=== PATIENT | female | born 1995 | race Two or more races ===

== ENCOUNTER → 2017-02-04 | Outpatient (CLI) | payer BC, OTHER ==
--- NOTE | 2017-02-04 17:06 | RAD ---
Indication large for dates. A limited obstetrical ultrasound examination was performed. No prior imaging is available. There is a single viable intrauterine fetus. heart rate of 136 was documented. The biparietal diameter of 9.4 cm, head circumference of 33.3 cm, abdominal circumference of 34.5 cm and femoral length of 7.3 cm are compatible with a gestational age of 38 weeks. By sonographic analysis the expected date of confinement is 02/18/2017. Estimated weight is approximately 4000 g. A survey was not performed. No gross anomalies were seen. The placenta is predominantly posterior and fundal. The calculated amniotic fluid index is 12. The current presentation is vertex. IMPRESSION: Single viable intrauterine fetus of approximately 38 weeks gestation. Vertex presentation.
== END | disposition home or self-care (01) ==
LOC: US 16:05
PROVIDERS: ATTEND Nurse Practitioner Women's Health
DX: O36.63X0 Maternal care for excessive fetal growth, third trimester, not applicable or unspecified (principal); Z3A.38 38 weeks gestation of pregnancy
CPT/HCPCS: 76805

== ENCOUNTER 2017-02-10 03:16 | Inpatient (IN) | payer BC ==
[~2017-02-10] VITALS: Ht 170.2 cm; Wt 128.8 kg
[2017-02-10] MEDS ORDERED: IV RINGERS,LACTATED 1000ML 1,000 ML IV SCH ×2 (04:30→14:11)
[2017-02-10] MEDS ORDERED: LIDOCAINE 1% PF 30 ML VIAL. INJ PRN (04:30)
[2017-02-10] MEDS ORDERED: 0.9 % SODIUM CHLORIDE 10 ML DISP.SYRIN. IV PRN ×2 (04:30→17:45)
[2017-02-10] MEDS ORDERED: ONDANSETRON PF 4 MG/2 ML VIAL. IV PRN ×2 (04:30→14:15)
[2017-02-10] MEDS ORDERED: ACETAMINOPHEN 325 MG TABLET. PO PRN ×2 (04:30→17:45)
[2017-02-10] MEDS ORDERED: BUTORPHANOL 2 MG/ML VIAL. IV PRN (04:30)
[2017-02-10] MEDS ORDERED: TERBUTALINE 1 MG/ML VIAL. SQ PRN (04:30)
[2017-02-10] MEDS ORDERED: MAG HYDROX/ALUMINUM HYD/SIMETH 30 ML ORAL.SUSP PO PRN ×2 (04:30→17:45)
[2017-02-10] MEDS ORDERED: OXYTOCIN 30 UNIT/500 ML PREMIX 500 ML IV PRN ×2 (04:30→17:45)
[2017-02-10 05:37] LABS: HEMATOCRIT 34.8 % (36.0-47.0); HEMOGLOBIN 11.4 g/dL (12.0-15.5); RED BLOOD COUNT 3.92 x10^6/uL (3.50-5.40); RED CELL DISTRIBUTION WIDTH 14.3 % (11.5-14.5); WHITE BLOOD COUNT 13.2 x10^3/uL (4.0-11.0)
[2017-02-10] MEDS: IV RINGERS,LACTATED 1000ML 1,000 ML IV SCH ×2 (05:46→13:40)
[2017-02-10 06:00] VITALS: BP 143/85
[2017-02-10] MEDS ORDERED: OXYTOCIN 30 UNIT/500 ML PREMIX 500 ML IV ONE (07:00)
[2017-02-10] MEDS: fentaNYL PF VIAL 100 MCG/2 ML VIAL IV PRN ×2 (11:39→12:59)
[2017-02-10] MEDS ORDERED: ROPIVacaine 0.2% IN 0.9%NACL PF 40 MG/20 ML DISP.SYRIN. ONE (13:34)
[2017-02-10] MEDS ORDERED: L&D EPIDURAL CASSETTE 100 ML EP ONE (13:34)
[2017-02-10] MEDS ORDERED: fentaNYL PF VIAL 100 MCG/2 ML VIAL EPI PRN (14:15)
[2017-02-10] MEDS ORDERED: L&D EPIDURAL CASSETTE 100 ML EP PRN (14:15)
[2017-02-10] MEDS ORDERED: ROPIVacaine 0.2% IN 0.9%NACL PF 40 MG/20 ML DISP.SYRIN. EPI PRN (14:15)
[2017-02-10] MEDS ORDERED: ePHEDrine PF IN SALINE 50 MG/5 ML DISP.SYRIN IV PRN (14:15)
[2017-02-10] MEDS ORDERED: NALOXONE 0.4 MG/ML VIAL. IV PRN (14:15)
[2017-02-10] MEDS ORDERED: PHENYLEPH/MINERAL OIL/PETROLAT RECTAL OINTMENT 28GM TUBE. RC PRN (17:45)
[2017-02-10] MEDS ORDERED: diphenhydrAMINE HCL 25 MG CAPSULE PO PRN (17:45)
[2017-02-10] MEDS ORDERED: HYDROcodone/APAP 5/325MG 1 TAB TABLET PO PRN ×2 (17:45)
[2017-02-10] MEDS ORDERED: BENZOCAINE 20% TOPICAL AEROSOL SPRAY 57GM CAN. TP PRN (17:45)
[2017-02-10] MEDS ORDERED: SIMETHICONE 80 MG TAB.CHEW PO PRN (17:45)
[2017-02-10] MEDS ORDERED: MAGNESIUM HYDROXIDE 2,400 MG/30 ML ORAL.SUSP. PO PRN (17:45)
[2017-02-10] MEDS ORDERED: HYDROCORTISONE 1% TOPICAL OINTMENT 30GM TUBE. TP PRN (17:45)
[2017-02-10] MEDS ORDERED: ZOLPIDEM 5 MG TABLET. PO PRN (17:45)
--- NOTE | 2017-02-10 19:02 | OP ---
DATE OF SURGERY: CHIEF COMPLAINT: Ruptured membranes. CLINICAL COURSE: This patient is a 21-year-old G3, P1, LC1, AB1 female admitted at term with EDC of 02/16/2017 with risk of obesity and abnormal genetic screening. She came in with acute rupture of membranes with clear fluid, did not progress spontaneously into labor and Pitocin augmentation was done. She did achieve 3 cm dilatation and very good contractions and epidural was administered. The patient quickly proceeded from 4 to complete, delivering a viable male infant with Apgars of 8, 9 and 9 at 1726 on 02/10/2017. Infant weighed 3015 grams. was delivered in OP position. Mouth was suctioned upon delivery of the head and nasopharynx was suctioned at that time. Shoulders were delivered and had spontaneous cry and no gross abnormalities. Repeat suctioning was done and cord was clamped and transected. Cord pHs were sent and cord blood was obtained. Placenta then was delivered intact with 3-vessel cord noted. Uterus was firm with Pitocin and palpation. Perineum was intact. There was good hemostasis after delivery with approximately 250 mL blood loss. Mother and baby went to recovery in stable condition. ALLIE DIAZ MD DR: CORNELIA/rosalinda JOB#: [id number] / [id number]
[2017-02-10 20:10] VITALS: BP 143/63
[2017-02-10 21:15] VITALS: BP 113/74
[2017-02-10] MEDS ORDERED: PNV1TABL25 PO (21:30)
[2017-02-11 01:15] VITALS: BP 114/66
[2017-02-11 02:40] LABS: BASO % 0 % (0-3); EOS % 1 % (0-3); HEMATOCRIT 32.6 % (36.0-47.0); HEMOGLOBIN 10.6 g/dL (12.0-15.5); LYMPH # 2.5 x10^3/uL (1.0-4.8); LYMPH % 17 % (24-48); MEAN CORPUSCULAR HEMOGLOBIN 29 pg (25-35); MEAN CORPUSCULAR HGB CONC 33 g/dL (31-37); MEAN CORPUSCULAR VOLUME 89 fL (79-100); MONO % 7 % (0-9); NEUT % 75 % (31-73); PLATELET COUNT 221 x10^3/uL (140-400); RED BLOOD COUNT 3.68 x10^6/uL (3.50-5.40); RED CELL DISTRIBUTION WIDTH 14.7 % (11.5-14.5); WHITE BLOOD COUNT 14.4 x10^3/uL (4.0-11.0)
[2017-02-11] MEDS: IBUPROFEN 600 MG TABLET. PO PRN ×2 (05:29→16:16)
[2017-02-11 05:35] VITALS: BP 125/88
[2017-02-11] MEDS: FERROUS SULFATE 325 MG TABLET. PO SCH ×2 (08:00→17:00)
[2017-02-11] MEDS ORDERED: DIPHTH,PERTUSS(ACELL),TET TOX 0.5 ML DISP.SYRIN. VAX IM ONE (09:00)
[2017-02-11 11:21] LABS: RPR REFLEX Non Reactive (Non Reactive)
[2017-02-11 11:50] VITALS: BP 112/76
[2017-02-11 14:21] LABS: HEP B SURFACE ABDY Reactive (.)
[2017-02-11 17:03] VITALS: BP 120/74
--- NOTE | 2017-02-11 17:09 | PDOC1 ---
OB - History Hx of Present Care: Good Care Ultrasounds: Normal mid trimester US Obstetrical Complications: Other (abnormal genetic screen) Medical Complications: None Past Family/Social History * Past Medical, Surgical, Family and Obstetric Histories reviewed from chart. Blood Type: O+ Rubella: Immune RPR/VDRL: Negative GBS Status: Negative HBsAG: Negative OB - Chief Complaint & HPI Date of Admission: Date of Admission: February 10, 2017 at 03:16 Chief Complaint/History : 3 Para: 1 EDC: Feb 17, 2017 Reason for admission: rupture of membranes Admission Nurse Assessment Rev: Yes Problems: OB - Admission Exam Physical Exam Vitals: VS - Last 72 Hours, by Label Date Time Temp Pulse Resp B/P (MAP) Pulse Ox O2 Delivery O2 Flow Rate FiO2 02/11/17 17:03 98.1 82 18 120/74 (89) 98.1 02/11/17 11:50 68 18 112/76 (88) 02/11/17 05:35 98.2 79 18 125/88 (100) 96 Room Air 98.2 02/11/17 01:15 98.1 81 18 114/66 (82) 96 Room Air 98.1 02/10/17 21:15 97.9 97 18 113/74 (87) 97 Room Air 97.9 02/10/17 20:10 96.3 111 18 143/63 (89) Room Air 96.3 02/10/17 11:39 Room Air 02/10/17 06:00 97.3 94 18 143/85 (104) 97.3 HEENT: Normal, Nasal Mucosa Normal, Oropharynx Normal, Moist Membranes, Fontanelles Normal Lungs: Clear, Equal Abdomen: Gravid Extremities: Normal Pulses, No tenderness or swelling Reflexes: Normal Cervical Dilatation: 2cm Station: -3 Membranes: Ruptured Amniotic Fluid: Clear Heart Rate: Normal Decelerations: No decelerations Short Term Variability: Present Fpc Variability: Moderate Contractions on Admission: None Intensity: Mild ALLIE DIAZ MD February 11, 2017 17:09
--- NOTE | 2017-02-11 17:11 | PDOC ---
PROGRESS NOTES Subjective Subjective Patient doing very well postop day 1. Patient tolerating diet and ambulating. Patient having decreased bleeding and pain. Objective Objective Vital Signs Date Time Temp Pulse Resp B/P (MAP) Pulse Ox O2 Delivery O2 Flow Rate FiO2 02/11/17 17:03 98.1 82 18 120/74 (89) 98.1 02/11/17 05:35 96 Room Air Intake and Output 02/11/17 07:00 Intake Total 1855.4 ml Balance 1855.4 ml Intake Oral 400 ml IV Total 1455.4 ml # Voids 1 Physical Exam Abdomen: Normal bowel sounds, Other (uterus firm and below umbilicus) Heart: Regular rate Extremities: No edema, Other (negative Homans sign) General: Alert Lungs: Clear to auscultation Assessment Assessment day 1 Plan Plan of Care Routine care Comment Review of Relevant I have reviewed the following items andres (where applicable) has been applied. Labs Laboratory Tests Test 02/10/17 05:15 02/10/17 07:35 02/11/17 02:25 White Blood Count 13.2 x10^3/uL (4.0-11.0) 14.4 x10^3/uL (4.0-11.0) Red Blood Count 3.92 x10^6/uL (3.50-5.40) 3.68 x10^6/uL (3.50-5.40) Hemoglobin 11.4 g/dL (12.0-15.5) 10.6 g/dL (12.0-15.5) Hematocrit 34.8 % (36.0-47.0) 32.6 % (36.0-47.0) Mean Corpuscular Volume 89 fL (79-100) 89 fL (79-100) Mean Corpuscular Hemoglobin 29 pg (25-35) 29 pg (25-35) Mean Corpuscular Hemoglobin Concent 33 g/dL (31-37) 33 g/dL (31-37) Red Cell Distribution Width 14.3 % (11.5-14.5) 14.7 % (11.5-14.5) Platelet Count 248 x10^3/uL (140-400) 221 x10^3/uL (140-400) RPR Titer Additional Testing Non reactive (Non Reactive) Hepatitis B Surface Antibody Reactive (.) Rubella IgG Antibody 2.82 index (Immune >0.99) Neutrophils (%) (Auto) 75 % (31-73) Lymphocytes (%) (Auto) 17 % (24-48) Monocytes (%) (Auto) 7 % (0-9) Eosinophils (%) (Auto) 1 % (0-3) Basophils (%) (Auto) 0 % (0-3) Neutrophils # (Auto) 10.8 x10^3uL (1.8-7.7) Lymphocytes # (Auto) 2.5 x10^3/uL (1.0-4.8) Monocytes # (Auto) 1.1 x10^3/uL (0.0-1.1) Eosinophils # (Auto) 0.1 x10^3/uL (0.0-0.7) Basophils # (Auto) 0.0 x10^3/uL (0.0-0.2) Laboratory Tests Test 02/11/17 02:25 White Blood Count 14.4 x10^3/uL (4.0-11.0) Red Blood Count 3.68 x10^6/uL (3.50-5.40) Hemoglobin 10.6 g/dL (12.0-15.5) Hematocrit 32.6 % (36.0-47.0) Mean Corpuscular Volume 89 fL (79-100) Mean Corpuscular Hemoglobin 29 pg (25-35) Mean Corpuscular Hemoglobin Concent 33 g/dL (31-37) Red Cell Distribution Width 14.7 % (11.5-14.5) Platelet Count 221 x10^3/uL (140-400) Neutrophils (%) (Auto) 75 % (31-73) Lymphocytes (%) (Auto) 17 % (24-48) Monocytes (%) (Auto) 7 % (0-9) Eosinophils (%) (Auto) 1 % (0-3) Basophils (%) (Auto) 0 % (0-3) Neutrophils # (Auto) 10.8 x10^3uL (1.8-7.7) Lymphocytes # (Auto) 2.5 x10^3/uL (1.0-4.8) Monocytes # (Auto) 1.1 x10^3/uL (0.0-1.1) Eosinophils # (Auto) 0.1 x10^3/uL (0.0-0.7) Basophils # (Auto) 0.0 x10^3/uL (0.0-0.2) Medications Current Medications Ringer's Solution 1,000 ml @ 125 mls/hr Q8H IV Last administered on 02/10/17 13:40; Start 02/10/17 at 03:32 Sodium Chloride (Normal Saline Flush) 3 ml QSHIFT PRN IV AFTER MEDS AND BLOOD DRAWS; Start 02/10/17 at 04:30 Ringer's Solution 1,000 ml @ 125 mls/hr Q8H IV ; Start 02/10/17 at 04:30 Butorphanol Tartrate (Stadol) 2 mg PRN Q1HR PRN IV Severe labor pain; Start at 04:30 Fentanyl Citrate (Fentanyl 2ml Vial) 100 mcg PRN Q20MIN PRN IV Labor pain Last administered on 02/10/17 12:59; Start 02/10/17 at 04:30 Acetaminophen (Tylenol) 650 mg PRN Q6HRS PRN PO MILD PAIN / TEMP; Start at 04:30 Ondansetron HCl (Zofran) 4 mg PRN Q4HRS PRN IV NAUSEA/VOMITING; Start 02/10/17 at 04:30 Al Hydroxide/Mg Hydroxide (Mylanta Plus Xs) 30 ml PRN Q4HRS PRN PO HEARTBURN / GAS; Start 02/10/17 at 04:30 Terbutaline Sulfate (Brethine) 0.25 mg 1X PRN PRN SQ SEE COMMENTS; Start at 04:30; Stop 02/11/17 at 04:29; Status DC Lidocaine HCl 30 ml 1X PRN PRN INJ SEE COMMENTS; Start 02/10/17 at 04:30; Stop 02/12/17 at 04:29 Oxytocin/Sodium Chloride 500 ml @ 0 mls/hr CONT PRN PRN IV Post delivery bleeding; Start 02/10/17 at 04:30 Ibuprofen (Motrin) 600 mg PRN Q6HRS PRN PO MODERATE PAIN Last administered on 16:16; Start 02/10/17 at 04:30 Oxytocin/Sodium Chloride 500 ml @ 0 mls/hr 1X ONCE IV Last administered on 07:30; Start 02/10/17 at 07:00; Stop 02/10/17 at 07:01; Status DC Ropivacaine/ Fentanyl/NS 100 ml @ As Directed STK-MED ONCE EP ; Start 02/10/17 at 13:34; Stop 02/10/17 at 13:35; Status DC Ropivacaine 40 mg STK-MED ONCE .ROUTE ; Start 02/10/17 at 13:34; Stop 02/10/17 at 13:35; Status DC Ringer's Solution 1,000 ml @ 1,000 mls/hr Q1H IV Last administered on 15:36; Start 02/10/17 at 14:11; Stop 02/10/17 at 15:10; Status DC Ephedrine Sulfate 10 mg PRN Q2MIN PRN IV IF SBP<90; Start 02/10/17 at 14:15 Naloxone HCl (Narcan) 0.4 mg PRN Q1MIN PRN IV SEE COMMENTS; Start 02/10/17 at 14:15 Fentanyl Citrate (Fentanyl 2ml Vial) 100 mcg PRN 1X PRN EPI FOR ANESTHESIA; Start 02/10/17 at 14:15; Stop 02/11/17 at 14:14; Status DC Ropivacaine/ Fentanyl/NS 100 ml @ 14 mls/hr CONT PRN EP PAIN Last administered on 02/10/17 14:14; Start 02/10/17 at 14:15 Ondansetron HCl (Zofran) 4 mg PRN Q6HRS PRN IV NAUSEA/VOMITING; Start 02/10/17 at 14:15 Ropivacaine 40 mg PRN 1X PRN EPI SEE COMMENTS Last administered on 02/10/17 14 :13; Start 02/10/17 at 14:15; Stop 02/11/17 at 14:14; Status DC Sodium Chloride (Normal Saline Flush) 10 ml QSHIFT PRN IV AFTER MEDS AND BLOOD DRAWS; Start 02/10/17 at 17:45 Oxytocin/Sodium Chloride 500 ml @ 62.5 mls/hr CONT PRN IV SEE I/O RECORD; Start 02/10/17 at 17:45; Stop 02/11/17 at 01:44; Status DC Acetaminophen (Tylenol) 650 mg PRN Q6HRS PRN PO MILD PAIN / TEMP; Start at 17:45 Magnesium Hydroxide (Milk Of Magnesia) 2,400 mg PRN DAILY PRN PO CONSTIPATION; Start 02/10/17 at 17:45 Al Hydroxide/Mg Hydroxide (Mylanta Plus Xs) 30 ml PRN Q4HRS PRN PO HEARTBURN / GAS; Start 02/10/17 at 17:45 Simethicone (Gas-X) 80 mg PRN AFTMEALHC PRN PO GAS / BLOATING; Start 02/10/17 at 17:45 Diphenhydramine HCl (Benadryl) 25 mg PRN Q6HRS PRN PO ITCHING; Start 02/10/17 at 17:45 Benzocaine (Americaine) 1 spray PRN QID PRN TP TOPICAL PAIN; Start 02/10/17 at 17:45 Phenyleph/Shark Oil/Min Oil/Petrol (Preparation H) 1 laurent PRN QID PRN RC RECTAL PAIN; Start 02/10/17 at 17:45 Hydrocortisone (Cortaid) 1 laurent PRN QID PRN TP PERINEAL PAIN; Start 02/10/17 at 17:45 Ferrous Sulfate (Feosol) 325 mg BIDWMEALS PO ; Start 02/11/17 at 08:00 Zolpidem Tartrate (Ambien) 5 mg PRN QHS PRN PO INSOMNIA, MAY REPEAT X1; Start 02/10/17 at 17:45 Info (Do NOT chart on this placeholder) 1 ea 1X PRN PRN MC SEE COMMENTS; Start 02/10/17 at 17:45 Acetaminophen/ Hydrocodone Bitart (Lortab 5/325) 1 tab PRN Q4HRS PRN PO MILD PAIN; Start 02/10/17 at 17:45 Acetaminophen/ Hydrocodone Bitart (Lortab 5/325) 2 tab PRN Q4HRS PRN PO MODERATE PAIN, SEVERE PAIN; Start 02/10/17 at 17:45 Diphtheria/ Tetanus/Acell Pertussis (Boostrix) 0.5 ml ONCE ONCE VAX IM Last administered on 02/11/17t 07:56; Start 02/11/17 at 09:00; Stop 02/11/17 at 09:01 ; Status DC Active Scripts Active Reported Tablet (Pnv Cmb#95/Ferrous Fumarate/Fa) 1 Each Tablet 1 Tab PO DAILY Vitals/I & O Vital Sign - Last 24 Hours 02/10/17 02/10/17 02/11/17 02/11/17 20:10 21:15 01:15 05:35 Temp 96.3 97.9 98.1 98.2 96.3 97.9 98.1 98.2 Pulse 111 97 81 79 Resp 18 18 18 18 B/P (MAP) 143/63 (89) 113/74 (87) 114/66 (82) 125/88 (100) Pulse Ox 97 96 96 O2 Delivery Room Air Room Air Room Air Room Air 02/11/17 02/11/17 11:50 17:03 Temp 98.1 98.1 Pulse 68 82 Resp 18 18 B/P (MAP) 112/76 (88) 120/74 (89) Intake and Output 02/10/17 02/10/17 02/11/17 15:00 23:00 07:00 Intake Total 1000 ml 855.4 ml Balance 1000 ml 855.4 ml ALLIE DIAZ MD February 11, 2017 17:11
[2017-02-11 22:35] VITALS: BP 119/76
[2017-02-12 02:07] VITALS: BP 117/75
[2017-02-12 05:38] VITALS: BP 102/47
[2017-02-12] MEDS ORDERED: HYDR-2666 PO (09:08)
[2017-02-12] MEDS ORDERED: IBUP-1060 PO (09:08)
--- NOTE | 2017-02-12 09:11 | PDOC3 ---
OB DISCHARGE SUMMARY DATE OF ADMISSION: 02/10/17 DATE OF DISCHARGE: 02/12/17 REASON FOR ADMISSION: Induction of labor, SROM INTRAPARTUM PROCEDURES: Spontanous Vag Deliv DISCHARGE INFORMATION: Activity (no sexual activity 6 weeks) HOSPITAL COURSE Normal CONDITION AT DISCHARGE stable ALLIE DIAZ MD February 12, 2017 09:11
[2017-02-12 10:05] VITALS: BP 122/68
[2017-02-12] MEDS: IBUPROFEN 600 MG TABLET. PO PRN (11:12)
[2017-02-12 15:37] VITALS: BP 118/79
== END 2017-02-12 15:35 | disposition home or self-care (01) | DRG 775 ==
LOC: 3 SO LND 03:16 → OBSVTOIN 03:16 → 3 SO LND 03:30
PROVIDERS: ADMIT Family Medicine; ATTEND Family Medicine
PROC: 10E0XZZ Delivery of Products of Conception, External Approach (ICD-10-PCS; principal; 2017-02-10)
PROC: 3E0S3CZ (ICD-10-PCS; 2017-02-10)
PROC: 00HU33Z Insertion of Infusion Device into Spinal Canal, Percutaneous Approach (ICD-10-PCS; 2017-02-10)
DX: O80 Encounter for full-term uncomplicated delivery (principal); Z37.0 Single live birth; Z3A.39 39 weeks gestation of pregnancy
CPT/HCPCS: 36415; 85027; 86593; 86706; 86762; 86850; 86900; 86901; 87340; 87341; 90715; G0378; J2590; J2795; J3010; J7120